=== PATIENT | male | born 2005 | race African-American/Black ===

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

== ENCOUNTER 2023-10-24 12:25 | Emergency (ER) | payer SELFPAY ==
[~2023-10-24] VITALS: Ht 180.3 cm; Wt 67.9 kg
[~2023-10-24 12:25] MED LIST: IBUP-1456 PO
[2023-10-24 12:49] VITALS: BP 149/83; PULSE 91; RESP 20; O2SAT 98
== END 2023-10-24 15:03 | disposition left against medical advice (07) ==
LOC: ER 12:25
DX: R06.02 Shortness of breath (principal); J45.909 Unspecified asthma, uncomplicated; R07.89 Other chest pain; R10.84 Generalized abdominal pain; Z53.21 Procedure and treatment not carried out due to patient leaving prior to being seen by health care provider
CPT/HCPCS: 71045